=== PATIENT | female | born 1975 | race American Indian/Alaskan Native ===

== ENCOUNTER 2016-12-31 12:20 | Emergency (ER) | payer SELFPAY ==
[2016-12-31 14:49] LABS: Bacteria,Urine 1+ /HPF (Negative); Bilirubin,Urine NEG (Negative); Blood,Urine NEG (Negative); Ketones,Urine NEG (Negative); Leukocyte Esterase,Urine MOD (Negative); Mucus,Urine FEW /HPF; Nitrite,Urine POS (Negative); Protein,Urine <15 mg/dL mg/dL (Negative); Urobilinogen,Urine < 2.0 mg/dL (<2.0)
[2016-12-31] MEDS ORDERED: XYLOCAINE 1% MPF 5 mL INFILTRATI ONE (16:17)
[2016-12-31] MEDS ORDERED: ZITHROMAX PO ONE (16:17)
[2016-12-31] MEDS ORDERED: ROCEPHIN IM ONE (16:17)
--- NOTE | 2016-12-31 16:25 | Emergency Department Report ---
ED Back Pain/Injury HPI - General Chief Complaint: Medical Clearance Stated Complaint: BLADDER INFECTION/POSS STD Source: patient Mode of arrival: Ambulatory Limitations: No Limitations - History of Present Illness Initial Comments: 41 year old female presents to ED with mild lower back pain and states she would like to be checked for UTI and STD. Patient states her partner has gonorrhea and she would like to be treated for STD today. patient denies fever, discharge, vaginal bleeding. patient is stable, neurologically intact and in no acute distress. MD Complaint: back pain -: Gradual, days(s) (2) Similar Symptoms Previously: No Place: home Radiation: groin Severity: mild Quality: aching (pressure) Consistency: intermittent Improves With: none Worsens With: none Associated Symptoms: denies: confusion, weakness, chest pain, numbness, difficulty walking, difficulty urinating, incontinence, fever/chills, constipation, headaches, abdominal pain, nausea/vomiting, shortness of breath - Related Data Previous Rx's Medication Instructions Recorded Last Taken Type Nitrofurantoin [place]/M-Cryst 100 mg PO Q12HR #14 capsule 12/31/16 Unknown Rx [Macrobid CAP] metroNIDAZOLE [Flagyl TAB] 500 mg PO Q12HR #14 tab 12/31/16 Unknown Rx Allergies Allergy/AdvReac Type Severity Reaction Status Date / Time No Known Allergies Allergy Unverified 12/31/16 12:38 ED Review of Systems ROS: Stated complaint: BLADDER INFECTION/POSS STD Other details as noted in HPI Constitutional: denies: chills, fever Eyes: denies: eye pain, eye discharge, vision change ENT: denies: ear pain, throat pain Respiratory: denies: cough, shortness of breath, wheezing Cardiovascular: denies: chest pain, palpitations Endocrine: no symptoms reported Gastrointestinal: denies: abdominal pain, nausea, diarrhea Genitourinary: denies: urgency, dysuria, frequency, hematuria, discharge Musculoskeletal: back pain. denies: joint swelling, arthralgia Skin: denies: rash, lesions Neurological: denies: headache, weakness, paresthesias Psychiatric: denies: anxiety, depression Hematological/Lymphatic: denies: easy bleeding, easy bruising ED Back Pain Physical Exam - Exam General: Vital signs noted. No distress. Alert and acting appropriately. Pelvic examination: normal external genitalia mild white drainage from cervix no cervical motion tenderness. no blood noted on examination. Back/Abdomen: No Abdominal Tenderness, No Perithoracic Tenderness, No Perilumbar Tenderness, No Sacroiliac Tenderness, No Flank Tenderness, No Straight Leg Raise Pain Neuro: Yes Normal Sensation, Yes Normal DTR's, Yes Normal Gait, No Motor Weakness ED Course Vital Signs 12/31/16 12:38 Temperature 98.4 F Pulse Rate 100 H Respiratory 18 Rate Blood Pressure 142/72 O2 Sat by Pulse 100 Oximetry Ed Back Pain Tests - Tests Tests: Abnormal UA (UTI 15WBC's) ED Medical Decision Making - Lab Data Labs 12/31/16 12:43 Urine Color Yellow Urine Turbidity Slightly-cloudy Urine pH 6.0 Ur Specific [place] 1.014 Urine Protein <15 mg/dl Urine Glucose (UA) Neg Urine Ketones Neg Urine Blood Neg Urine Nitrite Pos Ur Reducing Substances Not Reportable Urine Bilirubin Neg Urine Ictotest Not Reportable Urine Urobilinogen < 2.0 Ur Leukocyte Esterase Mod Urine WBC (Auto) 15.0 H Urine RBC (Auto) 4.0 U Epithel Cells (Auto) 5.0 Urine Bacteria (Auto) 1+ Urine Mucus Few Urine HCG, Qual Negative Wet prep positive for BV and Trich GC results pending and patient knows to come back to medical records for results. - Medical Decision Making 41 year old female presents to ED with mild lower back pain and poss STD. patient has accepted prophylatic treatment for STD and will call back to medical records for her results. patient has positive urine specimen for UTI and positive wet prep for BV and trich. patient is stable, neurologically intact and in no acute distress. Critical care attestation.: If time is entered above; I have spent that time in minutes in the direct care of this critically ill patient, excluding procedure time. ED Disposition Clinical Impression: STD (female), Trichomoniasis UTI (urinary tract infection) Qualifiers: Urinary tract infection type: acute cystitis Hematuria presence: without hematuria Qualified Code(s): N30.00 - Acute cystitis without hematuria Disposition: DISCHARGED TO HOME OR SELFCARE Is pt being admited?: No Does the pt Need Aspirin: No Condition: Stable Instructions: Trichomoniasis (ED), Urinary Tract Infection in Women (ED) Prescriptions: metroNIDAZOLE [Flagyl TAB] 500 mg PO Q12HR #14 tab Nitrofurantoin [place]/M-Cryst [Macrobid CAP] 100 mg PO Q12HR #14 capsule Referrals: PRIMARY CARE, [Primary Care Provider] - 3-5 Days Forms: Work/School Release Form(ED)
[2016-12-31 18:28] VITALS: BP 136/87
== END 2016-12-31 23:00 | disposition home or self-care (01) ==
LOC: ED 12:20
DX: N30.00 Acute cystitis without hematuria (principal); A59.9 Trichomoniasis, unspecified; A64 Unspecified sexually transmitted disease
CPT/HCPCS: 81001; 81025; 87210; 87591; 96372; 99283; J0696

== ENCOUNTER 2018-09-04 17:08 | Emergency (ER) | payer OTHER ==
[2018-09-04 17:18] VITALS: BP 146/91
[2018-09-04] MEDS ORDERED: TYLENOL #3 PO ONE (21:19)
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
--- NOTE | 2018-09-04 23:27 | XRay Report ---
FINAL REPORT EXAM: XR KNEE 3V LT HISTORY: left knee pain TECHNIQUE: Left knee three views PRIORS: None. FINDINGS: No fracture is identified. No dislocation seen. No evidence of joint effusion. Patella demonstrates n ormal positioning. No acute bony abnormality identified. IMPRESSION: Negative knee series
== END 2018-09-05 00:34 | disposition home or self-care (01) ==
LOC: ED 17:08
DX: S86.912A Strain of unspecified muscle(s) and tendon(s) at lower leg level, left leg, initial encounter (principal); F17.200 Nicotine dependence, unspecified, uncomplicated; F12.10 Cannabis abuse, uncomplicated; V09.9XXA Pedestrian injured in unspecified transport accident, initial encounter; Y93.89 Activity, other specified; Y99.8 Other external cause status; Y92.410 Unspecified street and highway as the place of occurrence of the external cause